=== PATIENT | male | born 1965 | race Caucasian/White ===

== ENCOUNTER 2020-07-06 07:38 | Emergency (ER) | payer OTHER ==
[2020-07-06] MEDS ORDERED: MAG HYDROX/AL HYDROX/SIMETH 30 ML UNIT-DOSE CUP PO ONE (07:46)
[2020-07-06] MEDS ORDERED: FAMOTIDINE 20 MG/50 ML IVPB 20 MG/50 ML MG IVPB ONE ×2 (07:46→08:13)
[2020-07-06 07:54] VITALS: TEMP 98.3; BMI 37.3
[2020-07-06] MEDS ORDERED: MAG HYDROX/AL HYDROX/SIMETH 30 ML UNIT-DOSE CUP ONE (08:13)
[2020-07-06 08:45] LABS: ALBUMIN 4.7 g/dl (3.4-5.0); BILIRUBIN,TOTAL 6.1 mg/dl (0.2-1); CALCIUM 9.2 mg/dl (8.5-10); CREATININE 0.7 mg/dl (0.55-1.3); POTASSIUM 4.8 mmol/L (3.5-5.1); TOT PROT 7.8 g/dl (6.4-8.2)
[2020-07-06 08:49] LABS: WHITE BLOOD COUNT 9.4 K/mm3 (4.0-10.8)
[2020-07-06 08:55] LABS: HEMATOCRIT 44.8 % (35.4-49); HEMOGLOBIN 14.1 GM/dl (11.7-16.9); MCH 20.3 pg (25.7-33.7); MCHC 31.5 g/dl (32.0-35.9); MEAN CELL VOLUME 64.6 fl (80-96); MEAN PLT VOLUME 8.8 fl (7.5-11.1); PLATELET COUNT 99 K/MM3 (134-434); RBC 6.93 M/mm3 (4.00-5.60); RDW 15.2 % (11.9-15.9)
[2020-07-06 08:59] LABS: ADD RBC MORPHOLOGY YES
[2020-07-06 09:57] LABS: ANISOCYTOSIS 2+
[2020-07-06 09:58] LABS: PLATELET ESTIMATE DECREASED
[2020-07-06] MEDS ORDERED: SODIUM CHLORIDE 1,000 ML IV STA (10:26)
[2020-07-06 10:43] VITALS: BP 123/80; PULSE 84
== END 2020-07-06 11:27 | disposition left against medical advice (07) ==
LOC: FER 07:38
PROC: 3E033NZ Introduction of Analgesics, Hypnotics, Sedatives into Peripheral Vein, Percutaneous Approach (ICD-10-PCS; principal; 2020-07-06)
PROC: 3E0337Z Introduction of Electrolytic and Water Balance Substance into Peripheral Vein, Percutaneous Approach (ICD-10-PCS; 2020-07-06)
DX: K85.90 Acute pancreatitis without necrosis or infection, unspecified (principal)
CPT/HCPCS: 36415; 71046-TC-FY; 76705-TC; 80053; 82248; 83690; 84484; 85025; 93005; 99285-25